=== PATIENT | female | born 1995 | race Caucasian/White ===

== ENCOUNTER 2023-11-01 16:28 | Emergency (ER) | payer BC, SELFPAY ==
[2023-11-01 16:34] VITALS: BP 108/78
[2023-11-01 16:58] LABS: % Basophils 0.1 % (0-2); % Eosinophils 0.7 % (0-6); % Immature Granulocytes 0.5 % (0-0.5); % Monocytes 5.5 % (1.7-9.3); % Neutrophils 69.2 % (42.2-75.2); Absolute Eosinophils 0.1 10^3/uL (0-0.7); Absolute Monocytes 0.5 10^3/uL (0.1-0.6); Absolute Neutrophils 5.8 10^3/uL (1.4-6.5); Hematocrit 36.6 % (37.0-47.0); Hemoglobin 13.5 g/dL (12.0-16.0); Mean Corp Hgb Conc. 36.9 g/dL (33.0-37.0); Mean Corpuscular Hgb 31.1 pg (27.0-31.0); Mean Corpuscular Volume 84.3 fL (81.0-99.0); Mean Platelet Volume 9.2 fL (7.4-10.4); Nucleated Red Blood Cells % 0 %; Platelet Count 258 10^3/uL (130-400); Red Blood Cell Count 4.34 10^6/uL (4.20-5.40); Red Cell Dist. Width 12.4 % (11.5-14.5); White Blood Cell Count 8.3 10^3/uL (4.8-10.8)
--- NOTE | 2023-11-01 17:09 | ED.GENMED ---
History of Present Illness
General
Chief Complaint: Headache
Time Seen by Provider: 11/01/23 17:09
Travel History
Have you had any contact with someone who has COVID-19?: No
Do you have any symptoms of coronavirus? Fever > 100 degrees, chills, cough, shortness of breath, sore throat, loss of taste or smell, muscle aches, or headache?: No
History of Present Illness
History of Present Illness:
28-year-old female, G1, P0 currently 15 weeks gestational age presents the emergency department complaining of intermittent headaches and intractable vomiting for the past 4 days. Has a history of migraine headaches states that current headache is
comparable. Headache is since improved however nausea has not resolved. She also reports heartburn symptoms. Has not yet felt movements at this early gestation. Denies any vaginal bleeding or discharge
Past History
Past History
ED Past Medical History: Other (Irritable bowel syndrome. Migraines)
ED Past Surgical History: Other (Adenoids, oral surgery, sinus surgery)
Review of Systems
Review of Systems
Allergies reviewed?: Yes
All Other Systems: ROS reviewed and negative except as documented in HPI and ROS
Phy Exam
Physical Exam
Physical Exam:
GEN: Well appearing, NAD, WDWN
HEENT: Oral mucosa moist, no scleral icterus
Cardiac: Regular rate
Lung: No respiratory distress, no tachypnea
Abdomen: Soft, nontender, no rigidity
MSK: No gross deformity or injuries
Skin: Good color, no pallor or jaundice, no rashes
Neuro: AO x3, moves all extremities freely
Psych: Calm, cooperative
Course
Orders/Labs/Results
Orders:
Orders
11/01/23 16:40
Complete Blood Count/With Diff Urgent
Comprehensive Metabolic Panel Urgent
11/01/23 17:17
0.9% Sodium Chloride 1000 ml [Nss] 1,000 ml IV BOLUS
Metoclopramide [Reglan] 10 mg IV NOW STA
11/01/23 17:18
Urinalysis Reflex To Culture Urgent
Dextrose 5%/0.9%Sodchl 500 ml [D5/0.9% Sodium Chloride] 250 ml IV 250 mls/hr
Abnormal Lab Results
11/01/23
16:40
Hct 36.6 L %
(37.0-47.0)
MCH 31.1 H pg
(27.0-31.0)
Sodium 132 L mmol/L
(135-145)
Potassium 3.3 L mmol/L
(3.5-5.1)
BUN 6 L mg/dl
(7-17)
Creatinine 0.5 L mg/dL
(0.6-1.0)
11/01/23 16:40
11/01/23 16:40
Vital Signs
Initial and Last Documented VS:
Initial Vital Signs
Temp Pulse Resp BP Pulse Ox
98.3 F 99 16 108/78 99
11/01/23 16:34 11/01/23 16:34 11/01/23 16:34 11/01/23 16:34 11/01/23 16:34
Last Documented Vital Signs
Temp Pulse Resp BP Pulse Ox
98.3 F 99 16 108/78 99
11/01/23 16:34 11/01/23 16:34 11/01/23 16:34 11/01/23 16:34 11/01/23 16:34
MDM/Problems Addressed
MDM/Problems Addressed:
28-year-old female presents with symptoms consistent with migraine in the setting of her known migraine disorder. She is mildly hypokalemic secondary to vomiting. Her symptoms dramatically improved after IV fluid resuscitation and antiemetics.
She is advised that [id number] famotidine is appropriate in for her GERD symptoms. She is too early in gestation to be concerned about preeclampsia at this time particular given lack of elevated blood pressure. Discussed further
supportive care
*Critical Care Note
Total Time (30-74mins, 75-104mins- exclusive of procedures): Not Applicable
ED Attending Note
-
Portions of this chart may have been created with voice recognition software.� Occasional wrong word or��sound alike� substitutions may have occurred due to the inherent limitations of voice recognition software.
Discharge Plan
Departure
Patient Disposition: Home (Routine Discharge)
Date of Disposition: 11/01/23
Time of Disposition: 18:59
Patient with high blood pressure during this ER visit?: No
Discharge Problem:
Migraine
Instructions: Migraines (DC)
Prescriptions:
New
ondansetron 4 mg tablet,disintegrating
4 mg PO TIDPRN PRN (Reason: nausea/vomiting) Qty: 10 0RF
Referrals:
Eloisa Benoit CRNP [Family Provider] -
Activity Restrictions/Additional Instructions:
You may take [id number] Pepcid as needed for acid reflux
Interventions
Interventions:
*Risk Screen - Suicide Last Done: 11/01/23 16:34
*General Assessment Last Done: 11/01/23 16:34
*Neglect/Abuse Screening Last Done: 11/01/23 16:34
*ED COVID-19 Vaccine History Last Done: 11/01/23 16:34
ED- Neurological Assessment Last Done: 11/01/23 18:00
[2023-11-01 17:13] LABS: ALT (SGPT) 17 U/L (0-35); AST (SGOT) 25 U/L (14-36); Albumin 4.4 g/dl (3.5-5.0); Alkaline Phosphatase 70 U/L (38-126); Blood Urea Nitrogen 6 mg/dl (7-17); Calcium 9.3 mg/dl (8.4-10.2); Carbon Dioxide 22 mmol/L (22-30); Chloride 103 mmol/L (98-107); Glucose 93 mg/dl (70-99); Potassium 3.3 mmol/L (3.5-5.1); Sodium 132 mmol/L (135-145); Total Bilirubin 0.7 mg/dl (0.2-1.3); Total Protein 7.7 g/dl (6.3-8.2); eGFR > 60.00
[2023-11-01] MEDS: D5/0.9% SODIUM CHLORIDE 250 IV (17:39)
[2023-11-01] MEDS: REGLAN 10 MG IV (17:40)
[2023-11-01] MEDS: NSS 1000 IV (17:48)
[2023-11-01] MEDS: PEPCID 20 MG IV (19:12)
== END 2023-11-01 19:37 | disposition home or self-care (01) ==
LOC: EMR 16:28
PROVIDERS: EMERGENCY PHYSICIAN Emergency Medicine; FAMILY PHYSICIAN Nurse Practitioner Adult Health
DX: O99.891 Other specified diseases and conditions complicating pregnancy (principal); G43.909 Migraine, unspecified, not intractable, without status migrainosus; K58.9 Irritable bowel syndrome, unspecified; E87.6 Hypokalemia; Z3A.15 15 weeks gestation of pregnancy
CPT/HCPCS: 99284; 96374; 96375; 96361; 80053; 85025

== ENCOUNTER → 2023-12-20 09:24 | Outpatient (REF) | payer BC, SELFPAY | LOC: DHCBS MAIN 09:24 | PROVIDERS: ATTENDING PHYSICIAN Internal Medicine Cardiovascular Disease; FAMILY PHYSICIAN Nurse Practitioner Adult Health | DX: R00.2 Palpitations (principal) | CPT/HCPCS: 93306 ==

== ENCOUNTER 2024-02-28 13:33 | Observation (INO) | payer BC, SELFPAY ==
[2024-02-28 14:02] VITALS: BP 134/84; BMI 25.3
[2024-02-28 14:12] LABS: Hematocrit 31.9 % (37.0-47.0); Hemoglobin 11.3 g/dL (12.0-16.0); Mean Corp Hgb Conc. 35.4 g/dL (33.0-37.0); Mean Corpuscular Hgb 30.6 pg (27.0-31.0); Mean Corpuscular Volume 86.4 fL (81.0-99.0); Mean Platelet Volume 9.8 fL (7.4-10.4); Platelet Count 207 10^3/uL (130-400); Red Blood Cell Count 3.69 10^6/uL (4.20-5.40); Red Cell Dist. Width 12.5 % (11.5-14.5); White Blood Cell Count 10.7 10^3/uL (4.8-10.8)
[2024-02-28 14:32] LABS: ALT (SGPT) 18 U/L (0-35); AST (SGOT) 23 U/L (14-36); Albumin 3.7 g/dl (3.5-5.0); Alkaline Phosphatase 105 U/L (38-126); Blood Urea Nitrogen 8 mg/dl (7-17); Calcium 9.3 mg/dl (8.4-10.2); Carbon Dioxide 26 mmol/L (22-30); Chloride 104 mmol/L (98-107); Estimated Creatinine Clearance 117 ml/min; Glucose 92 mg/dl (70-99); Potassium 4.1 mmol/L (3.5-5.1); Sodium 133 mmol/L (135-145); Total Bilirubin 0.4 mg/dl (0.2-1.3); Total Protein 6.8 g/dl (6.3-8.2); eGFR > 60.00
[2024-02-28 14:42] LABS: Urine Protein 13 mg/dl
== END 2024-02-28 15:19 | disposition home or self-care (01) ==
LOC: PNTC-IN 13:33
PROVIDERS: Obstetrics & Gynecology; ADMITTING PHYSICIAN Obstetrics & Gynecology
DX: O14.03 Mild to moderate pre-eclampsia, third trimester (principal); Z3A.31 31 weeks gestation of pregnancy; Z88.5 Allergy status to narcotic agent
CPT/HCPCS: 76815; 80053; 82570; 84156; 85027; G0378

== ENCOUNTER 2024-03-13 03:56 | Observation (INO) | payer BC, SELFPAY ==
[2024-03-13 05:19] LABS: % Basophils 0.2 % (0-2); % Eosinophils 0.9 % (0-6); % Immature Granulocytes 0.5 % (0-0.5); % Lymphocytes 17.1 % (20.5-51.1); % Monocytes 5.1 % (1.7-9.3); % Neutrophils 76.2 % (42.2-75.2); Absolute Eosinophils 0.1 10^3/uL (0-0.7); Absolute Immature Granulocytes 0.1 10^3/uL (0-0.05); Absolute Monocytes 0.6 10^3/uL (0.1-0.6); Absolute Neutrophils 8.7 10^3/uL (1.4-6.5); Hematocrit 38.9 % (37.0-47.0); Hemoglobin 13.6 g/dL (12.0-16.0); Mean Corpuscular Hgb 30.6 pg (27.0-31.0); Mean Corpuscular Volume 87.6 fL (81.0-99.0); Mean Platelet Volume 10.1 fL (7.4-10.4); Nucleated Red Blood Cells % 0 %; Platelet Count 211 10^3/uL (130-400); Red Blood Cell Count 4.44 10^6/uL (4.20-5.40); Red Cell Dist. Width 12.5 % (11.5-14.5); White Blood Cell Count 11.5 10^3/uL (4.8-10.8)
[2024-03-13 05:31] LABS: Protein/creatinine Ratio 0.3; Urine Protein 12 mg/dl
[2024-03-13 05:48] LABS: ALT (SGPT) 16 U/L (0-35); AST (SGOT) 24 U/L (14-36); Albumin 4.4 g/dl (3.5-5.0); Alkaline Phosphatase 160 U/L (38-126); Blood Urea Nitrogen 7 mg/dl (7-17); Calcium 9.9 mg/dl (8.4-10.2); Carbon Dioxide 23 mmol/L (22-30); Chloride 101 mmol/L (98-107); Glucose 89 mg/dl (70-99); Potassium 3.6 mmol/L (3.5-5.1); Sodium 134 mmol/L (135-145); Total Bilirubin 0.8 mg/dl (0.2-1.3); Total Protein 7.7 g/dl (6.3-8.2); eGFR > 60.00
[2024-03-13 06:52] VITALS: BP 138/83; BMI 26.2
== END 2024-03-13 08:51 | disposition home or self-care (01) ==
LOC: LDRP 03:56
PROVIDERS: ADMITTING PHYSICIAN Obstetrics & Gynecology
DX: O14.03 Mild to moderate pre-eclampsia, third trimester (principal); G43.909 Migraine, unspecified, not intractable, without status migrainosus; O99.353 Diseases of the nervous system complicating pregnancy, third trimester; Z3A.33 33 weeks gestation of pregnancy; Z88.5 Allergy status to narcotic agent; Z91.040 Latex allergy status
CPT/HCPCS: 80053; 82570; 84156; 85025; 86850; 86900; 86901; G0378

== ENCOUNTER → 2024-03-22 14:05 | Outpatient (REF) | payer BC, SELFPAY | LOC: PNTC 14:05 | PROVIDERS: ATTENDING PHYSICIAN Obstetrics & Gynecology | DX: O14.03 Mild to moderate pre-eclampsia, third trimester (principal) | CPT/HCPCS: 59025; 76815 ==

== ENCOUNTER 2024-04-04 19:41 | Inpatient (IN) | payer BC, SELFPAY ==
[2024-04-04 20:10] VITALS: BP 124/86; BMI 27.3
[2024-04-04] MEDS: LR 1000 IV (20:51)
[2024-04-04 21:04] LABS: % Basophils 0.1 % (0-2); % Immature Granulocytes 0.4 % (0-0.5); % Lymphocytes 23.3 % (20.5-51.1); % Monocytes 6.9 % (1.7-9.3); % Neutrophils 68.3 % (42.2-75.2); Absolute Eosinophils 0.1 10^3/uL (0-0.7); Absolute Lymphocytes 2.2 10^3/uL (1.2-3.4); Absolute Monocytes 0.7 10^3/uL (0.1-0.6); Absolute Neutrophils 6.6 10^3/uL (1.4-6.5); Hematocrit 30.8 % (37.0-47.0); Mean Corp Hgb Conc. 35.7 g/dL (33.0-37.0); Mean Corpuscular Hgb 29.6 pg (27.0-31.0); Mean Corpuscular Volume 82.8 fL (81.0-99.0); Mean Platelet Volume 10.5 fL (7.4-10.4); Nucleated Red Blood Cells % 0 %; Platelet Count 221 10^3/uL (130-400); Red Blood Cell Count 3.72 10^6/uL (4.20-5.40); Red Cell Dist. Width 12.2 % (11.5-14.5); White Blood Cell Count 9.6 10^3/uL (4.8-10.8)
[2024-04-04 21:43] LABS: ALT (SGPT) 12 U/L (0-35); AST (SGOT) 21 U/L (14-36); Albumin 3.7 g/dl (3.5-5.0); Alkaline Phosphatase 150 U/L (38-126); Blood Urea Nitrogen 9 mg/dl (7-17); Calcium 9.4 mg/dl (8.4-10.2); Carbon Dioxide 16 mmol/L (22-30); Chloride 105 mmol/L (98-107); Estimated Creatinine Clearance > 125 ml/min; Glucose 100 mg/dl (70-99); Potassium 3.9 mmol/L (3.5-5.1); Sodium 130 mmol/L (135-145); Total Bilirubin 0.4 mg/dl (0.2-1.3); Total Protein 6.7 g/dl (6.3-8.2); eGFR > 60.00
[2024-04-04] MEDS: CYTOTEC 25 MICROGRAM VAG (21:45)
[2024-04-05] MEDS: BENADRYL 50 MG IV (04:18)
[2024-04-05] MEDS: PENICILLIN 110 UNITS IV (04:49)
[2024-04-05] MEDS: LR 1000 IV ×2 (04:49→11:15)
[2024-04-05] MEDS: ZOFRAN 54 MG IV (05:39)
[2024-04-05] MEDS: PENICILLIN 55 UNITS IV ×3 (09:12→17:00)
[2024-04-05] MEDS: PITOCIN 30 UNITS/NSS 500 ML IV (10:24)
[2024-04-05] MEDS: TUMS EX (EXTRA STRENGTH) CHEWABLE 2 TABLET PO (12:44)
[2024-04-05] MEDS: PEPCID 40 MG PO (15:10)
[2024-04-05] MEDS: SUBLIMAZE 100 MCG EPIDURAL (15:33)
[2024-04-06 05:23] LABS: Hematocrit 29.6 % (37.0-47.0); Hemoglobin 10.4 g/dL (12.0-16.0)
[2024-04-06] MEDS: MOTRIN 600 MG PO ×3 (06:02→19:20)
[2024-04-06 14:47] LABS: Syphilis/T. pallidum Ab Reflex Negative (Negative)
[2024-04-07 09:19] LABS: Glucose - Point of Care 120 mg/dl (70-99)
== END 2024-04-07 13:10 | disposition home or self-care (01) | DRG 807 ==
LOC: LDRP 19:41
PROVIDERS: Obstetrics & Gynecology; ADMITTING PHYSICIAN Obstetrics & Gynecology; REFERRING PHYSICIAN Obstetrics & Gynecology
PROC: 10E0XZZ Delivery of Products of Conception, External Approach (ICD-10-PCS; 2024-04-04)
PROC: 10907ZC Drainage of Amniotic Fluid, Therapeutic from Products of Conception, Via Natural or Artificial Opening (ICD-10-PCS; 2024-04-04)
PROC: 0UQMXZZ Repair Vulva, External Approach (ICD-10-PCS; 2024-04-04)
PROC: 3E0P7VZ Introduction of Hormone into Female Reproductive, Via Natural or Artificial Opening (ICD-10-PCS; 2024-04-04)
DX: O14.04 Mild to moderate pre-eclampsia, complicating childbirth (principal); Z37.0 Single live birth; O99.824 Streptococcus B carrier state complicating childbirth; O69.81X0 Labor and delivery complicated by cord around neck, without compression, not applicable or unspecified; O71.82 Other specified trauma to perineum and vulva; Z3A.37 37 weeks gestation of pregnancy
CPT/HCPCS: 88307; 36415; 80053; 82962; 85014; 85018; 85025; 86780; 86850; 86900; 86901